=== PATIENT | female | born 1950 ===

== ENCOUNTER 2018-01-27 08:17 | Outpatient (CLI) | payer OTHER | END 2018-01-27 08:24 | disposition home or self-care (01) | LOC: SONOGRAMA 08:17 → MAMO-SONO 08:45 | DX: E04.2 Nontoxic multinodular goiter (principal) ==

== ENCOUNTER 2018-07-05 11:24 | Outpatient (CLI) | payer OTHER | END 2018-07-05 11:26 | disposition home or self-care (01) | LOC: SONOGRAMA 11:24 | DX: E04.2 Nontoxic multinodular goiter (principal) ==

== ENCOUNTER 2021-02-11 11:07 | Outpatient (CLI) | payer OTHER | END 2021-02-11 11:17 | disposition home or self-care (01) | LOC: SONOGRAMA 11:07 | DX: E04.2 Nontoxic multinodular goiter (principal) ==

== ENCOUNTER → 2021-07-15 09:26 | Outpatient (CLI) | payer OTHER | END | disposition home or self-care (01) | LOC: LAB 09:26 | PROVIDERS: ATTEND Surgery | DX: Z01.812 Encounter for preprocedural laboratory examination (principal); Z01.811 Encounter for preprocedural respiratory examination ==